=== PATIENT | male | born 1990 | race Caucasian/White ===

== ENCOUNTER 2017-01-06 09:40 | Emergency (ER) | payer OTHER | END 2017-01-06 11:15 | disposition home or self-care (01) | LOC: ER1 09:40 | DX: S46.911A Strain of unspecified muscle, fascia and tendon at shoulder and upper arm level, right arm, initial encounter (principal); Z88.0 Allergy status to penicillin; W01.0XXA Fall on same level from slipping, tripping and stumbling without subsequent striking against object, initial encounter; Y92.69 Other specified industrial and construction area as the place of occurrence of the external cause; Y99.0 Civilian activity done for income or pay | CPT/HCPCS: 73030; 96372; 99283; J1885 ==

== ENCOUNTER 2022-04-08 14:27 | Emergency (ER) | payer SELFPAY ==
[~2022-04-08 14:27] MED LIST: CLINDAMYCIN HC150 MG PO; HYDROCODON-ACE1 EAC4 PO
== END 2022-04-08 16:32 | disposition left against medical advice (07) ==
LOC: ER1 14:27
DX: Z53.21 Procedure and treatment not carried out due to patient leaving prior to being seen by health care provider (principal)